=== PATIENT | male | born 1980 | race Caucasian/White ===

== ENCOUNTER 2016-11-11 21:23 | Inpatient (IN) | payer OTHER ==
[2016-11-11 21:33] VITALS: BMI 31.1
[2016-11-11] MEDS ORDERED: DECADRON 4 MG/ML SDV IM STA (22:00)
[2016-11-11] MEDS ORDERED: DUONEB NEB STA (22:00)
[2016-11-11] MEDS ORDERED: TYLENOL PO STA (22:00)
--- NOTE | 2016-11-11 22:09 | ED.PDOC ---
General ED Provider: Dr. SANJEEV ANDERS Chief Complaint: Fever Stated Complaint: Been cughing, congested, fever chills, no sputum. hurting all over, Time Seen by Physician: 22:06 Mode of Arrival: Walk-In Information Source: Patient Primary Care Provider: MEENA STERLING Nursing and Triage Documentation Reviewed and Agree: Yes Respiratory Complaint Exam - Respiratory Complaint/Exam Symptoms Are: Still present Timing: Constant Initial Severity: Mild Current Severity: Mild Location: Chest Character: Reports: Non-productive cough Aggravating: Reports: URI Alleviating: Reports: None Associated Signs and Symptoms: Reports: Dyspnea, Fever, Chills, Nasal congestion , Hoarseness. Denies: Rapid breathing, Chest pain, Pleuritic chest pain, Wheezing, Hemoptysis, Dizziness, Calf pain, Calf swelling, Edema, URI, Sinus discomfort, Vomiting, Sore throat, Weight loss, Decreased oral intake, Increased thirst, Increased appetite, Increased urination History of Healthcare-Acquired Pneumonia: No Related Surgical History: Reports: None Pulmonary Embolism Risk Factors: None, Smoking Cardiac Risk Factors: Reports: None Pseudomonas Risk Factors: Reports: None Tuberculosis Risk Factors: Reports: None Status Asthmaticus Risk Factors: Reports: None Home Oxygen Use: No Recent Stress Test: No Recent Echo/LV Function: No Current Antibiotic Use: No Current Asthma Medication Use: No Respiratory Distress: None Dysphagia Present: No Stridor Present: No JVD Present: No Accessory Muscle Use: No Retractions: Not Present Diminished Breath Sounds: Yes Sinus Tenderness: None Kussmaul Respirations: No Differential Diagnoses: Pneumonia, Bronchitis, Influenza Review of Systems - Review Of Systems Constitutional: Reports: Chills, Fever, Malaise, Weakness Eyes: Reports: No symptoms Ears, Nose, Mouth, Throat: Reports: No symptoms Respiratory: Reports: Cough, Short of air Cardiac: Reports: No symptoms GI: Reports: No symptoms : Reports: No symptoms Musculoskeletal: Reports: No symptoms Skin: Reports: No symptoms Neurological: Reports: No symptoms Endocrine: Reports: No symptoms Hematologic/Lymphatic: Reports: No symptoms All Other Systems: Reviewed and Negative Past Medical History - Past Medical History Previously Healthy: Yes Endocrine: Reports: None Cardiovascular: Reports: None Respiratory: Reports: Asthma Hematological: Reports: None Gastrointestinal: Reports: None Genitourinary: Reports: None Neuro/Psych: Reports: None Musculoskeletal: Reports: None Cancer: Reports: None - Surgical History General Surgical History: Reports: Orthopedic (Left collor bone ) - Family History Family History: Reports: None - Social History Smoking Status: Current every day smoker, Heavy tobacco smoker Smoking Cessation Counseling Time: > 10 min Hx Substance Use: Yes (2 YEAR AGO LORTABS) Alcohol Screening: None - Immunizations Tetanus Shot up to Date: (UNKNOWN) Physical Exam - Physical Exam Appearance: Ill-appearing, Obese Eyes: RUSSELL, EOMI, Conjunctiva clear ENT: Ears normal, Nose normal, Oropharynx normal Respiratory: Crackles, Rhonchi Cardiovascular: RRR, Pulses normal, No rub, No murmur GI/: Soft, Nontender, No masses, Bowel sounds normal, No Organomegaly Musculoskeletal: Normal strength, ROM intact, No edema, No calf tenderness Skin: Warm, Dry, Normal color Neurological: Sensation intact, Motor intact, Reflexes intact, Cranial nerves intact, Alert, Oriented Psychiatric: Affect appropriate, Mood appropriate Interpretation - Radiology Interpretation Radiology Interpretation By: Radiologist Radiology Results: Positive Exam Interpreted: CT Scan Physician Notification - Case Discussed Time of Notification: 23:15 (Dr ramos) Critical Care Note - Critical Care Note Total Time (mins): 30 Course - Course Hematology/Chemistry: 11/11/16 22:16 11/11/16 22:16 Orders, Labs, Meds: Lab Review 11/11/16 11/11/16 11/11/16 22:00 22:16 22:16 WBC 27.52 H RBC 4.39 L Hgb 12.5 L Hct 36.2 L MCV 82.5 MCH 28.5 MCHC 34.5 RDW Coeff of [place] 13.5 Plt Count 281 Immature Gran % (Auto) 0.8 Neut % (Auto) 86.1 Lymph % (Auto) 5.7 L [place] % (Auto) 5.1 Eos % (Auto) 1.7 Baso % (Auto) 0.6 Immature Gran # (Auto) 0.2 Neut # 23.7 H Lymph # 1.6 [place] # 1.4 Eos # 0.5 Baso # 0.2 Sodium 140 Potassium 3.2 L Chloride 105 Carbon Dioxide 24 Anion Gap 14.2 BUN 12 Creatinine 0.78 Estimated GFR (MDRD) 114.00 BUN/Creatinine Ratio 15.38 Glucose 89 Lactic Acid Calcium 9.2 Total Bilirubin 0.44 AST 39 H ALT 20 Alkaline Phosphatase 75 Total Protein 6.9 Albumin 3.4 Globulin 3.5 Albumin/Globulin Ratio 0.97 Procalcitonin Influenza A (Rapid) Negative Influenza B (Rapid) Negative 11/11/16 11/11/16 22:16 22:38 WBC RBC Hgb Hct MCV MCH MCHC RDW Coeff of [place] Plt Count Immature Gran % (Auto) Neut % (Auto) Lymph % (Auto) [place] % (Auto) Eos % (Auto) Baso % (Auto) Immature Gran # (Auto) Neut # Lymph # [place] # Eos # Baso # Sodium Potassium Chloride Carbon Dioxide Anion Gap BUN Creatinine Estimated GFR (MDRD) BUN/Creatinine Ratio Glucose Lactic Acid 11.2 Calcium Total Bilirubin AST ALT Alkaline Phosphatase Total Protein Albumin Globulin Albumin/Globulin Ratio Procalcitonin 0.35 Influenza A (Rapid) Influenza B (Rapid) Orders Category Date Time Status ABG DRAW REQUEST Stat CARDIO 11/11/16 22:29 Ordered NEBULIZER TREATMENT Stat CARDIO 11/11/16 22:01 Ordered ABG Stat LAB 11/11/16 22:23 Received BLOOD CULTURE Stat LAB 11/11/16 22:38 Received CBC W/ AUTO DIFF Stat LAB 11/11/16 22:16 Completed COMPREHENSIVE METABOLIC PANEL Stat LAB 11/11/16 22:16 Completed LACTIC ACID Stat LAB 11/11/16 22:38 Completed PROCALCITONIN Stat LAB 11/11/16 22:16 Completed RAPID FLU A/B Stat LAB 11/11/16 22:00 Completed Acetaminophen [Tylenol] MEDS 11/11/16 22:00 Discontinued 500 mg PO ONCE STA Dexamethasone 4 mg/ml Inj [Decadron 4 mg/ml Sdv] MEDS 11/11/16 22:00 Discontinued 4 mg IM ONCE STA Ipratropium/Albuterol Neb [Duoneb] MEDS 11/11/16 22:00 Discontinued 1 vial NEB ONCE STA Potassium Chloride [K-Dur] MEDS 11/11/16 23:02 Discontinued 40 meq PO ONCE STA CT CHEST W/O CONTRAST Stat RADS 11/11/16 22:00 Completed Medications Discontinued Medications Generic Name Dose Route Start Last Admin Trade Name Freq PRN Reason Stop Dose Admin Acetaminophen 500 mg 11/11/16 22:00 11/11/16 22:14 Tylenol PO 11/11/16 22:01 500 mg ONCE STA Administration Albuterol/Ipratropium 1 vial 11/11/16 22:00 11/11/16 22:24 Duoneb NEB 11/11/16 22:01 1 vial ONCE STA Administration Dexamethasone Sodium Phosphate 4 mg 11/11/16 22:00 11/11/16 22:14 Decadron 4 Mg/Ml Sdv IM 11/11/16 22:01 4 mg ONCE STA Administration Potassium Chloride 40 meq 11/11/16 23:02 11/11/16 23:12 K-Dur PO 11/11/16 23:03 40 meq ONCE STA Administration Vital Signs: Temp Pulse Resp BP Pulse Ox 11/11/16 21:23 101.6 F H 101 H 24 136/81 94 L Departure - Departure Time of Disposition: 23:15 Disposition: ADMITTED INPATIENT Discharge Problem: Pneumonia Qualifiers: Pneumonia type: due to unspecified organism Laterality: bilateral Lung location : unspecified part of lung Qualified Code(s): J18.9 - Pneumonia, unspecified organism Instructions: Community Acquired Pneumonia (ED) Condition: Stable Pt referred to PMD for follow-up: No Allergies/Adverse Reactions: Allergies No Known Allergies Allergy (Verified 11/11/16 21:29) Home Medications: Ambulatory Orders Albuterol Sulfate [Albuterol Sulfate Hfa] 2 inh INH PRN PRN 08/04/13 Ibuprofen [Motrin] 600 mg PO Q6H PRN #30 tablet 08/05/15 Budesonide/Formoterol Fumarate [Symbicort 160-4.5 Mcg Inhaler] 2 puff IH BID 03/29 Soboxone 1 tab PO BID 11/11/16 Transfer Form Completed: Yes Disposition Discussed With: Patient, Family
[2016-11-11 22:24] LABS: BASOPHILS # (AUTO) 0.2 K/uL (0-0.2); BASOPHILS % (AUTO) 0.6 % (0.0-3.0); EOSINOPHILS # (AUTO) 0.5 K/ul (0.0-0.7); EOSINOPHILS % (AUTO) 1.7 % (0.0-7.0); HEMATOCRIT 36.2 % (42.0-52.0); HEMOGLOBIN 12.5 g/dl (14.0-18.0); IMMATURE GRANULOCYTE % (AUTO) 0.8 % (0.0-5.0); LYMPHOCYTES # (AUTO) 1.6 K/uL (0.60-3.4); LYMPHOCYTES % (AUTO) 5.7 (10.0-50.0); MEAN CORPUSCULAR HEMOGLOBIN 28.5 pg (27.0-31.0); MEAN CORPUSCULAR HGB CONC 34.5 (31.8-35.4); MEAN CORPUSCULAR VOLUME 82.5 fl (80.0-94.0); MONOCYTES # (AUTO) 1.4 K/uL (0.4-2.0); MONOCYTES % (AUTO) 5.1 (0-10); NEUTROPHILS # (AUTO) 23.7 K/ul (2.0-6.9); NEUTROPHILS % (AUTO) 86.1; PLATELET COUNT 281 10^3/uL (140-440); RED BLOOD COUNT 4.39 10^6/ul (4.70-6.10); WHITE BLOOD COUNT 27.52 K/ul (4.2-10.2)
--- NOTE | 2016-11-11 22:33 | CT ---
EXAM: CT scan thorax without contrast HISTORY: Fever cough COMPARISON: CT scan thorax 08/05/2015 FINDINGS: Contiguous axial images obtained from the thoracic inlet through hemidiaphragms without co ntrast utilizing 5-mm collimation. Sagittal and coronal reconstructions were imaged and reviewed. Th e thoracic inlet is unremarkable. Redemonstrated are subcentimeter prevascular pretracheal and subca rinal lymph nodes. Hilar structures are not well evaluated without contrast. The heart is normal in size without pericardial effusion. Patchy infiltrates are noted diffusely throughout both lungs. Th ere is no evidence of a pleural effusion. Visualized upper abdominal structures unremarkable.. Bone windows reveals no evidence of lytic or blastic lesions. IMPRESSION: Diffuse patchy infiltrates are noted bilaterally compatible with diffuse pneumonia. No evidence of pleural effusion. Nonspecific subcentimeter mediastinal lymph nodes.
[2016-11-11 22:40] LABS: FLU INTERNAL QC INTERNAL QC VALID; RAPID FLU A NEGATIVE (NEGATIVE); RAPID FLU B NEGATIVE (NEGATIVE)
[2016-11-11 22:44] LABS: ALBUMIN 3.4 g/dL (3.4-5.0); ALBUMIN/GLOBULIN RATIO 0.97; ANION GAP 14.2; BILIRUBIN,TOTAL 0.44 mg/dL (0.00-1.20); BUN/CREATININE RATIO 15.38; CALCIUM 9.2 mg/dL (8.2-10.2); CREATININE 0.78 mg/dL (0.60-1.10); POTASSIUM 3.2 mmol/L (3.5-5.1); TOTAL PROTEIN 6.9 g/dL (6.4-8.2)
[2016-11-11] MEDS ORDERED: K-DUR PO STA (23:02)
[2016-11-11 23:15] LABS: ABG BASE EXCESS -1 (-2.0-2.0); ABG HCO3 23.5 (22.0-26.0); ABG PCO2 37.5 mmHg (35-45); ABG PH 7.406 (7.35-7.45); ABG TCO2 25 (22.0-28.0)
[2016-11-11] MEDS ORDERED: TYLENOL PO PRN (23:16)
[2016-11-11] MEDS ORDERED: ZITHROMAX 500 MG in SODIUM CHLORIDE 250 ML IV SCH (23:30)
[2016-11-11] MEDS ORDERED: ROCEPHIN 1 GM in SODIUM CHLORIDE 50 ML IV SCH (23:30)
[2016-11-12] MEDS: DUONEB NEB SCH ×5 (00:30→23:38)
[2016-11-12] MEDS ORDERED: ROCEPHIN ONE (01:22)
[2016-11-12] MEDS: SODIUM CHLORIDE 1,000 ML IV SCH ×2 (01:54→18:53)
[2016-11-12] MEDS: SOLU-MEDROL 40 MG IVP SCH ×2 (05:22→12:52)
[2016-11-12 05:53] LABS: HEMATOCRIT 35.9 % (42.0-52.0); HEMOGLOBIN 12.2 g/dl (14.0-18.0); MEAN CORPUSCULAR HEMOGLOBIN 28.3 pg (27.0-31.0); MEAN CORPUSCULAR VOLUME 83.3 fl (80.0-94.0); PLATELET COUNT 313 10^3/uL (140-440); RED BLOOD COUNT 4.31 10^6/ul (4.70-6.10); WHITE BLOOD COUNT 32.47 K/ul (4.2-10.2)
[2016-11-12 06:09] LABS: ANISOCYTOSIS NOT PRESENT (NOT PRESENT)
[2016-11-12 06:15] LABS: ALBUMIN 3.2 g/dL (3.4-5.0); ALBUMIN/GLOBULIN RATIO 0.89; ANION GAP 11.1; BILIRUBIN,TOTAL 0.3 mg/dL (0.00-1.20); BUN/CREATININE RATIO 13.41; CALCIUM 9.3 mg/dL (8.2-10.2); CREATININE 0.82 mg/dL (0.60-1.10); POTASSIUM 4.1 mmol/L (3.5-5.1); TOTAL PROTEIN 6.8 g/dL (6.4-8.2)
[2016-11-12 06:16] LABS: TROPONIN I 0.017 ng/ml (0.0000-0.4000)
[2016-11-12 06:17] LABS: CREATINE KINASE MB 2.4 ng/ml (0.0-3.6)
[2016-11-12] MEDS: SYMBICORT 160-4.5 MCG INHALER IH SCH ×2 (08:07→21:28)
[2016-11-12] MEDS: ROCEPHIN 2 GM in SODIUM CHLORIDE 100 ML IV SCH (12:24)
[2016-11-12 13:41] LABS: CREATINE KINASE 479 U/L
[2016-11-12 13:56] LABS: CREATINE KINASE MB 2.8 ng/ml (0.0-3.6)
[2016-11-12] MEDS: LOVENOX SUBCUT SCH (18:45)
[2016-11-12] MEDS: INFUVITE ADULT 10 ML in D5%-1/2NS-KCL 20 MEQ/L IV SOL 1,000 ML IV SCH (18:46)
[2016-11-12] MEDS ORDERED: INFUVITE ADULT IV ONE (18:47)
[2016-11-12] MEDS ORDERED: ROCEPHIN 1 GM in SODIUM CHLORIDE 50 ML IV SCH (21:00)
[2016-11-12] MEDS: ZITHROMAX 500 MG in SODIUM CHLORIDE 250 ML IV SCH (21:28)
[2016-11-13] MEDS: DUONEB NEB SCH ×4 (05:00→23:11)
[2016-11-13 05:10] LABS: BASOPHILS # (AUTO) 0.1 K/uL (0-0.2); BASOPHILS % (AUTO) 0.2 % (0.0-3.0); HEMATOCRIT 33.4 % (42.0-52.0); HEMOGLOBIN 11.5 g/dl (14.0-18.0); IMMATURE GRANULOCYTE % (AUTO) 2.4 % (0.0-5.0); LYMPHOCYTES # (AUTO) 1.8 K/uL (0.60-3.4); LYMPHOCYTES % (AUTO) 6.2 (10.0-50.0); MEAN CORPUSCULAR HEMOGLOBIN 28.6 pg (27.0-31.0); MEAN CORPUSCULAR HGB CONC 34.4 (31.8-35.4); MEAN CORPUSCULAR VOLUME 83.1 fl (80.0-94.0); MONOCYTES # (AUTO) 1.5 K/uL (0.4-2.0); NEUTROPHILS # (AUTO) 24.8 K/ul (2.0-6.9); NEUTROPHILS % (AUTO) 86.2; PLATELET COUNT 324 10^3/uL (140-440); RED BLOOD COUNT 4.02 10^6/ul (4.70-6.10); WHITE BLOOD COUNT 28.74 K/ul (4.2-10.2)
[2016-11-13 05:30] LABS: ALBUMIN 2.8 g/dL (3.4-5.0); ALBUMIN/GLOBULIN RATIO 0.82; ANION GAP 11.7; BILIRUBIN,TOTAL 0.19 mg/dL (0.00-1.20); BUN/CREATININE RATIO 9.58; CALCIUM 9.3 mg/dL (8.2-10.2); CREATININE 0.73 mg/dL (0.60-1.10); POTASSIUM 3.7 mmol/L (3.5-5.1); TOTAL PROTEIN 6.2 g/dL (6.4-8.2)
[2016-11-13] MEDS: LOVENOX SUBCUT SCH (08:26)
[2016-11-13] MEDS: ROCEPHIN 2 GM in SODIUM CHLORIDE 100 ML IV SCH (08:26)
[2016-11-13] MEDS: SYMBICORT 160-4.5 MCG INHALER IH SCH ×2 (08:26→21:33)
--- NOTE | 2016-11-13 09:16 | HP ---
CHIEF COMPLAINT: Fever and fatigue SOURCE OF HISTORY: The patient, reliability good HISTORY OF PRESENT ILLNESS: The patient claimed that he did not feel well the last two prior to the presentation to the emergency room. He was just tired but no sore throat. The patient began experiencing fever and was recorded at 102.9 at home about 9: 00pm. The cough was nonproductive without body aches. He had problems breathing. He denied any nausea, vomiting or diarrhea. Denied abdominal pain. He was seen at the emergency room and the emergency room physician felt that he needed admission because fever, bilateral pneumonia per CT scan and markedly elevate leukocyte count; 27,000. Blood culture and sputum culture was ordered. 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 History of migraine History of surgery to the left clavicle History of Lortab addiction and Suboxone FAMILY HISTORY: Brother had CVA Father history of cardiac problems as well as diabetes Mother had malignancy SOCIAL HISTORY: The patient is single, unemployed with history of PTSD from Deployment in [place] 2002 to 2003. Next of Kin; Ivana Ruth but the person to be notified is Edel Wendy. MEDICATIONS: Albuterol Sulfate HFA two inhalations PRN Motrin 600mg tablet Q 6 hours PRN Symbicort 160/4.5mcg two puffs twice a day Suboxone 8mg/2mg (Buprenorphine) Hydrochloride 8mg/Naloxone 2mg sublingually twice a day ALLERGIES: No known drug allergies. This patient goes to the [facility] in [place] as well as the [facility] clinic in [place]. REVIEW OF SYSTEMS: CONSTITUTIONAL: The patient complains of being fatigue with fever but no chills. Complains of some muscular aches. Denies any sore throat SR RISK MANAGEMENT CONSULTANT: The patient has history of headaches but no significant headaches now. No history of seizure disorder or syncope. The patient had a history of PTSD secondary to deployment in [place] [id number]. VISUAL: Denies any blurred, double vision or loss of vision. AUDITORY: Hearing is good. No tinnitus RESPIRATORY: The patient has cough that is non productive. The patient has some difficulty getting a good breath. This happened on presentation to the emergency room but not now on the floor CARDIOVASCULAR: Denies any chest pain or oppression. GASTROINTESTINAL: No nausea. No vomiting. No diarrhea or abdominal pain GENITOURINARY: No urinary frequency or dysuria. MUSCULOSKELETAL: The patient is complaining of some muscular aching. ENDOCRINE: Negative INTEGUMENT: Denies any rash or pleuritis. HEMATOLOGIC: Denies any easy bruising or prolonged bleeding with any injury PSYCHIATRIC: Affect is normal PHYSICAL EXAMINATION: GENERAL: 36 year old male alert and oriented times four. Not dyspneic or tachypneic at the time of my examination today. Admitted to the hospital because of fever, sensation of shortness of breath and pneumonitis by CT bilateral. VITAL SIGNS: Temperature 101.6, pulse 101, blood pressure 136/81, respiratory rate 24, oxygen saturation 94 at room air. HEAD: Unremarkable. FACE: Symmetrical and equal with no facial weakness and no redness and no remarkably tenderness to palpation in the frontal maxillary sinus areas. EYES: Pupils equal/reactive to light. Conjunctivae not pale. Sclerae not icteric. MOUTH: Unremarkable. THROAT: No inflammation, tumors or exudate. NECK: No masses. No bruit. No tenderness. No rigidity. No adenitis CHEST: Symmetrical and equal with good expansion with no remarkable tenderness. LUNGS: Breath sounds are heard in both sides, slightly diminished and no rales or wheezing. HEART: Audible and regular with good tones. No murmurs. ABDOMEN: Soft with no remarkable tenderness, no mass and no bruit. EXTERNAL GENITALIA: No examined RECTAL: LOWER EXTREMITIES: Symmetrical and equal with no remarkable edema. Pedal pulses not examined UPPER EXTREMITIES: Symmetrical and equal ASSESSMENT: 1. Bilateral pneumonitis 2. History of PTSD 3. History of drug addiction, Lortab now on Suboxone 8mg/2mg 4. Chronic tobacco use, heavy smoker pack of cigarettes per day maybe more 5. Elevated BMI 31.1 PROGNOSIS: Guarded MTDD
[2016-11-13] MEDS ORDERED: INFUVITE ADULT IV ONE ×2 (09:51→23:45)
[2016-11-13] MEDS: INFUVITE ADULT 10 ML in D5%-1/2NS-KCL 20 MEQ/L IV SOL 1,000 ML IV SCH (09:57)
--- NOTE | 2016-11-13 13:11 | PN ---
DATE OF VISIT: 11/12/16 SUBJECTIVE: The patient today is alert, oriented times four and afebrile. He is very cooperative. He looks good and he does not have any cyanosis and no dyspneic or tachypnea. VITAL SIGNS: Temperature 97.2, pulse 69, blood pressure 126/75, respiratory rate 18, oxygen saturation 92 at room air. LUNGS: Breath sounds are slightly diminished but no rales or wheezing that I can appreciate. HEART: Audible and regular with good tones and not tachycardiac. ABDOMEN: Soft and nontender FACE: Maxillary frontal sinuses nontender. LOWER EXTREMITIES: No remarkable tenderness. The patient was advised that his blood count showed an increasing WBC from 27, 000 to 32,000. His chemistries are normal. His sugar however has shot up to 255 probably because of the the Cortizone that was given. I had influenza antibody titers plus repeat procalcitonin. The procalcitonin is increasing from 0.35 to 0.83. I had increased the Rocephin to 2 grams from 1gram daily and the Zithromax was kept in place. I asked the patient not to smoke and he was agreeable. I told him that smoking would not be helpful. If needed a NicoDerm patches that we will give him. Lovenox 40mg Subcutaneously will be instituted. Cortizone should be discontinued since this patient is not having any wheezing. This patient had not had any Cortizone inhalation for the asthma. MTDD
[2016-11-13] MEDS: ZITHROMAX 500 MG in SODIUM CHLORIDE 250 ML IV SCH (21:33)
[2016-11-14] MEDS: INFUVITE ADULT 10 ML in D5%-1/2NS-KCL 20 MEQ/L IV SOL 1,000 ML IV SCH ×3 (00:35→17:29)
[2016-11-14 05:15] LABS: BASOPHILS # (AUTO) 0.1 K/uL (0-0.2); BASOPHILS % (AUTO) 0.6 % (0.0-3.0); EOSINOPHILS # (AUTO) 0.4 K/ul (0.0-0.7); EOSINOPHILS % (AUTO) 2.7 % (0.0-7.0); HEMATOCRIT 33.1 % (42.0-52.0); HEMOGLOBIN 11.3 g/dl (14.0-18.0); IMMATURE GRANULOCYTE % (AUTO) 1.8 % (0.0-5.0); LYMPHOCYTES # (AUTO) 3.7 K/uL (0.60-3.4); LYMPHOCYTES % (AUTO) 24.4 (10.0-50.0); MEAN CORPUSCULAR HEMOGLOBIN 28.5 pg (27.0-31.0); MEAN CORPUSCULAR HGB CONC 34.1 (31.8-35.4); MEAN CORPUSCULAR VOLUME 83.6 fl (80.0-94.0); MONOCYTES % (AUTO) 6.5 (0-10); NEUTROPHILS # (AUTO) 9.7 K/ul (2.0-6.9); PLATELET COUNT 318 10^3/uL (140-440); RED BLOOD COUNT 3.96 10^6/ul (4.70-6.10); WHITE BLOOD COUNT 15.14 K/ul (4.2-10.2)
[2016-11-14] MEDS: DUONEB NEB SCH ×4 (05:24→23:10)
[2016-11-14 05:50] LABS: ALBUMIN 2.7 g/dL (3.4-5.0); ALBUMIN/GLOBULIN RATIO 0.93; ANION GAP 11.2; BILIRUBIN,TOTAL 0.18 mg/dL (0.00-1.20); BUN/CREATININE RATIO 8.1; CALCIUM 8.6 mg/dL (8.2-10.2); CREATININE 0.74 mg/dL (0.60-1.10); POTASSIUM 3.2 mmol/L (3.5-5.1); TOTAL PROTEIN 5.6 g/dL (6.4-8.2)
[2016-11-14] MEDS ORDERED: INFUVITE ADULT IV ONE ×2 (08:07→17:08)
[2016-11-14] MEDS: LOVENOX SUBCUT SCH (08:16)
[2016-11-14] MEDS: ROCEPHIN 2 GM in SODIUM CHLORIDE 100 ML IV SCH (09:36)
[2016-11-14] MEDS: SYMBICORT 160-4.5 MCG INHALER IH SCH ×2 (09:36→21:03)
[2016-11-14] MEDS ORDERED: MOTRIN PO PRN (12:36)
[2016-11-15] MEDS ORDERED: INFUVITE ADULT IV ONE (04:14)
[2016-11-15] MEDS: INFUVITE ADULT 10 ML in D5%-1/2NS-KCL 20 MEQ/L IV SOL 1,000 ML IV SCH (04:30)
[2016-11-15] MEDS: DUONEB NEB SCH ×3 (04:50→17:04)
[2016-11-15 06:04] LABS: BASOPHILS # (AUTO) 0.2 K/uL (0-0.2); BASOPHILS % (AUTO) 1.4 % (0.0-3.0); EOSINOPHILS # (AUTO) 1.1 K/ul (0.0-0.7); EOSINOPHILS % (AUTO) 7.5 % (0.0-7.0); HEMATOCRIT 36.9 % (42.0-52.0); HEMOGLOBIN 12.4 g/dl (14.0-18.0); IMMATURE GRANULOCYTE % (AUTO) 3.7 % (0.0-5.0); LYMPHOCYTES # (AUTO) 3.6 K/uL (0.60-3.4); LYMPHOCYTES % (AUTO) 23.9 (10.0-50.0); MEAN CORPUSCULAR HEMOGLOBIN 28.4 pg (27.0-31.0); MEAN CORPUSCULAR HGB CONC 33.6 (31.8-35.4); MEAN CORPUSCULAR VOLUME 84.4 fl (80.0-94.0); MONOCYTES # (AUTO) 1.1 K/uL (0.4-2.0); MONOCYTES % (AUTO) 7.5 (0-10); NEUTROPHILS # (AUTO) 8.4 K/ul (2.0-6.9); PLATELET COUNT 354 10^3/uL (140-440); RED BLOOD COUNT 4.37 10^6/ul (4.70-6.10); WHITE BLOOD COUNT 15.01 K/ul (4.2-10.2)
[2016-11-15] MEDS: SYMBICORT 160-4.5 MCG INHALER IH SCH (08:21)
[2016-11-15] MEDS: ROCEPHIN 2 GM in SODIUM CHLORIDE 100 ML IV SCH (08:21)
[2016-11-15] MEDS: LOVENOX SUBCUT SCH (08:21)
--- NOTE | 2016-11-15 10:44 | PN ---
DATE OF SERVICE: 11/13/16 The patient today at noon is alert and without any respiratory distress and no cyanosis. His appetite is good and he claimed to be feeling much better. His WBC is down to 28,000 from 31 plus. I advised the patient that I had reviewed his chest CT with the radiologist. He had previous findings, which he admitted to having had previous pneumonias. The findings on the chest has worsened. I did advise him that he needs to stop smoking. The radiologist felt that the pneumonia is probably an atypical pneumonia, mycoplasma or chlamydia. Titers for those were requested. It is also possible that he could have a viral pneumonia. Titers for those are still pending also. Findings are the same as yesterday. VITAL SIGNS: At 10 a.m. showed a temperature of 96.9, pulse of 64, blood pressure 117/62, respiratory rate 18, oxygen saturation 93 at room air. PLAN: 1. This patient is continued on medications consisting of Rocephin 2 grams daily and Zithromax 500 mg daily. 2. The patient will probably be given four days of Zithromax, instead of 3 days. 3. The patient was advised to take deep breaths about three times in a row and exhale it slowly. MTDD
[2016-11-15 15:15] VITALS: BP 132/80; TEMP 97.8
[2016-11-15] MEDS ORDERED: LEVAQUIN PO STA (15:38)
[2016-11-15 19:10] LABS: CHLAMYDIA PNEUMONIAE IGM <1:10 (Neg:<1:10)
[2016-11-16 06:43] LABS: ABG BASE EXCESS 4 (-2.0-2.0); ABG PCO2 46.8 mmHg (35-45); ABG PH 7.399 (7.35-7.45); ABG TCO2 30 (22.0-28.0)
--- NOTE | 2016-11-21 15:15 | HP ---
CHIEF COMPLAINT: Fever and fatigue. SOURCE OF HISTORY: The patient, reliability good HISTORY OF PRESENT ILLNESS: The patient claimed that she did not feel well in the last two day prior to presentation to the emergency room. She was just tired but no sore throat. The patient began experiencing fever and was recorded at 102.9 at home about 9pm. The cough was nonproductive with body aches. He has problems breathing. He denied any nausea, vomiting or diarrhea. Also denies any abdominal pain. He was seen at the emergency room at the emergency room physician felt that he needed admission because of fever, bilateral pneumonia per CT scan and markedly elevated leukocyte count 27,000. Blood culture and sputum culture was ordered. PAST PERSONAL HISTORY: The patient had history of asthma Depression Anxiety PTSD secondary to Deployment in [place] 2002 and 2003 History of migraine History of surgery to the left cervic FAMILY HISTORY: SOCIAL HISTORY: MEDICATIONS: ALLERGIES: REVIEW OF SYSTEMS: CONSTITUTIONAL: SUPERVISOR ELEMENTARY EDUCATION: VISUAL: AUDITORY: RESPIRATORY: CARDIOVASCULAR: GASTROINTESTINAL: GENITOURINARY: MUSCULOSKELETAL: ENDOCRINE: INTEGUMENT: HEMATOLOGIC: PSYCHIATRIC: PHYSICAL EXAMINATION: GENERAL: VITAL SIGNS: HEAD: EYES: Pupils equal/reactive to light. Conjunctivae not pale. Sclerae not icteric. MOUTH: THROAT: No inflammation, tumors or exudate. NECK: No masses. No bruit. No tenderness. No rigidity. CHEST: LUNGS: HEART: Audible and regular with good tones. No murmurs. ABDOMEN: EXTERNAL GENITALIA: RECTAL: LOWER EXTREMITIES: UPPER EXTREMITIES: ASSESSMENT: 1. PLAN: 1. MTDD
--- NOTE | 2017-01-05 09:47 | PN ---
DATE OF VISIT: 11/14/16 SUBJECTIVE: The patient at 6 o'clock this afternoon is alert, ambulatory with movement of all extremities. He denies any shortness of breath and the cough is still nonproductive. Lungs still have diminished breath sounds but I certainly do not hear any rales or wheezing. Heart is audible with good tones and not tachycardic. OBJECTIVE: V/S: Temperature 97.7, pulse 63, BP 136/83, respiratory rate 16, oxygen saturation 97 on room air. He ate 100% of his dinner. WBC down to 20,740, neutrophils up slightly 24.8, electrolytes normal. Blood sugar 219. The patient is getting Dextrose 5% in 1/2 Saline. Total protein is low 6.2, albumin low at 2.8, Mycoplasma IgG 214, IgM less than 770, C. Pneumoniae IgG 1:128, IgM less than 1:10. Condition has improved. The general appearance of patient is good and does not appear sickly. [facility]
--- NOTE | 2017-01-07 13:44 | DS ---
PATIENT IDENTIFICATION: 36 year old male admitted to the hospital by the emergency room with a diagnosis of bilateral pneumonitis. The patient about two days prior to presentation to the emergency room did not feel well and felt tired. He did not have any fever then until 9:00 in the evening on the day of presentation. HOSPITAL COURSE: The patient experienced a temperature of 102.9. The cough was nonproductive and the patient denied any generalized body aches. He did experiencing some shortness of breath with exertion but no nausea or vomiting or diarrhea. He also did not have any abdominal pain or any urinary symptoms such as dysuria. This patient had history of asthma, depression, anxiety, PTSD from war deployment in 2002 and 2003 in [place], history of migraine, surgical to left clavicle fracture, addiction to Lortab and now on Suboxone. The patient's breath sounds were diminished but I could not hear any rales at all. Chest CT does indicate scattered densities indicating bilateral pneumonitis. I had review the chest CT and the previous x-ray of this patient and indeed the patient had some chest findings previously but the findings has progressed from the previous. His temperature at the emergency room was 101.6, pulse 101, blood pressure 136/81, oxygen saturation 94 he is 5'11 and 223 pounds. Blood culture and sputum specimens were obtained and the patient was then given Ceftriaxone 1 gram intervenously and Azithromycin 500mg intervenously daily. Ceftriaxone was increased to 2grams daily. The patient was given Lovenox 40mg SUBCUT as prophylaxis and Methylprednisolone 40mg SUBCUT IV Q 8 hours. He was also given Symbicort two puffs twice a day, DUO NEB nebulizer. Initial IV of 5% normal saline was changed to Dextrose 5% and 1/2 saline plus 20 KCL plus Mvi. These were given at 83cc per hour. He had analgesic Tylenol. Antipsoriatic was discontinued. The patient had normal temperature since admission to the floor. His appetite had improved and had been consuming 100% of dinner since the day after admission. Series showed severe leukocytosis rising 32,470 on the second day and had returned to 15,010 on discharge 11/15/16. The neutrophil began at 23.7 and down to 8.4 on day of discharge. The Procalcitonin 0.35 on admission and did rise to 0.83 on the second day and down to 0.14 on discharge 11/15/16. CK-MB and troponin were normal. Total bilirubin normal and AST and ALT normal except for one instance on admission at 39. Radiologist felt that this patient probably has an typical pneumonia process that maybe Chlamydia. This patient had Chlamydia antibody titer requested IgG and IgM. The IgG is intermediate and IgM is negative. Influenza A 1:32 and B 1:8. Mycoplasma pneumonia IgG 214 and IgM normal less than 770. Atrial blood gasses in the emergency room showed O2 saturation of 93, pH 7.406, pCO2 37.5, pO2 66, bicarb 23.5, FiO2 21. A repeat atrial blood gasses on discharged showed oxygen saturation at 95, pH 7.399, pCO2 46.8, pO2 77, bicarb 29, total CO2 30, FiO2 21. This patient at discharge was alert, ambulatory, feeling well. VITAL SIGNS: Temperature 97.8, pulse 73, blood pressure 132/80, respiratory rate 20, oxygen saturation room air 97. LUNGS:Breath sounds are diminished but I heard no rales. HEART: normal sinus rhythm FINAL DIAGNOSES: 1. Bilateral pneumonitis community acquire maybe atypical 2. Chronic tobacco use and abuse persistent 3. Hypoxemia secondary to #1 4. History of PTSD 5. History of Asthma PLAN: This patient is prescribed Levaquin 750mg daily. Resume all medications: Albuterol, Symbicort, Buprenorphine, Motrin if needed otherwise avoid the medication. The patient was advised to stop smoking completely and should see his primary physician or provider this coming Friday or Friday of the coming week. He goes to the [facility] either in [place] or [place]. He was further instructed to return to the emergency room if he has more problem or has recurrence of the problem. This patient again was repeatedly advised to stop smoking. PROGNOSIS: Guarded MTDD
== END 2016-11-15 17:45 | disposition home or self-care (01) | DRG 195 ==
LOC: ED 21:23 → MEDSURG A 23:40
PROVIDERS: ADMIT General Practice; ATTEND General Practice
DX: J18.9 Pneumonia, unspecified organism (principal); R50.9 Fever, unspecified; J45.909 Unspecified asthma, uncomplicated; R06.02 Shortness of breath; F43.12 Post-traumatic stress disorder, chronic; R09.02 Hypoxemia; F17.200 Nicotine dependence, unspecified, uncomplicated; Z79.899 Other long term (current) drug therapy
CPT/HCPCS: 36415; 80053; 82550; 82553; 82803; 83036; 83605; 84145; 84484; 85007; 85025; 86631; 86632; 86710; 86738; 87040; 87070; 87804; 93005; 93010; 94640; 96372; 99285

== ENCOUNTER 2018-02-07 21:18 | Emergency (ER) ==
[2018-02-07 21:28] VITALS: BMI 35.9
[2018-02-07] MEDS ORDERED: XOPENEX 1.25 MG NEB STA (21:29)
--- NOTE | 2018-02-07 21:46 | CT ---
EXAM: CT chest without contrast HISTORY: Fever/cough TECHNIQUE: Multi-slice transaxial helical with coronal and sagittal reformed images CONTRAST: None COMPARISON: CT chest from 11/11/2016. FINDINGS: The aorta has normal caliber. The heart size is normal. No pericardial or pleural effusio ns are appreciated. No suspicious lymphadenopathy detected. Sub centimeter mediastinal lymph nodes are noted. There are diffuse ground-glass opacities throughout the lungs. The solid organs are normal their visualized portions of the upper abdomen. The bones are free of suspicious osteolytic or osteoblastic lesions. IMPRESSION: Multifocal pneumonitis.
[2018-02-07] MEDS ORDERED: LEVAQUIN 750 MG in PREMIX 150 ML D5W 1 BAG IV STA (22:14)
[2018-02-07] MEDS ORDERED: LEVAQUIN 150 ML IV ONE (22:25)
--- NOTE | 2018-02-07 23:01 | ED.PDOC ---
General ED Provider: Dr. INOCENTE DYER-ER Chief Complaint: Fever Stated Complaint: i have fever and cough Time Seen by Physician: 21:20 Mode of Arrival: Walk-In Information Source: Patient Exam Limitations: No limitations Primary Care Provider: MEENA [place] Nursing and Triage Documentation Reviewed and Agree: Yes Does patient meet sepsis criteria?: No If yes, has appropriate treatment been initiated?: No System Inflammatory Response Syndrome: Not Applicable Sepsis Protocol: For patient's 13 years and over: Temp is 96.8 and below OR 101 and greater Pulse >90 BPM Resp >20/minute Acutely Altered Mental Status Are patient's symptoms suggestive of a new infection, such as: -Pneumonia -Skin, Soft Tissue -Endocarditis -UTI -Bone, Joint Infection -Implantable Device -Acute Abdominal Infection -Wound Infection -Meningitis -Blood Stream Catheter Infection -Unknown Respiratory Complaint Exam - Respiratory Complaint/Exam Onset/Duration: 2 days Symptoms Are: Still present Initial Severity: Mild Current Severity: Moderate Character: Reports: Productive cough Aggravating: Reports: URI Associated Signs and Symptoms: Reports: Dyspnea, Fever, Chills, URI. Denies: Rapid breathing Pseudomonas Risk Factors: Reports: None Tuberculosis Risk Factors: Reports: None Dysphagia Present: No Stridor Present: No JVD Present: No Accessory Muscle Use: No Retractions: Not Present, Diaphragmatic Sinus Tenderness: None Grunting Respirations: No Kussmaul Respirations: No Differential Diagnoses: Pneumonia Review of Systems - Review Of Systems Constitutional: Reports: Chills, Fever, Weakness Eyes: Reports: No symptoms Ears, Nose, Mouth, Throat: Reports: No symptoms Respiratory: Reports: Cough, Short of air Cardiac: Reports: No symptoms GI: Reports: No symptoms : Reports: No symptoms Musculoskeletal: Reports: No symptoms Skin: Reports: No symptoms Neurological: Reports: No symptoms Endocrine: Reports: No symptoms Hematologic/Lymphatic: Reports: No symptoms All Other Systems: Reviewed and Negative Past Medical History - Past Medical History Previously Healthy: Yes Endocrine: Reports: None Cardiovascular: Reports: None Respiratory: Reports: Asthma Hematological: Reports: None Gastrointestinal: Reports: None Genitourinary: Reports: None Neuro/Psych: Reports: None Musculoskeletal: Reports: None Cancer: Reports: None - Surgical History General Surgical History: Reports: Orthopedic (Left collor bone ) - Family History Family History: Reports: None - Social History Smoking Status: Current every day smoker, Heavy tobacco smoker Hx Substance Use: Yes (TAKES SUBOXONE) Alcohol Screening: None - Immunizations Tetanus Shot up to Date: (UNKNOWN) Physical Exam - Physical Exam Appearance: Ill-appearing Eyes: RUSSELL, EOMI, Conjunctiva clear ENT: Ears normal, Nose normal, Oropharynx normal Neck: Supple Respiratory: Crackles, Rhonchi, Wheezes Cardiovascular: RRR, Pulses normal, No rub, No murmur GI/: Soft Musculoskeletal: Normal strength Skin: Warm, Dry, Normal color Neurological: Sensation intact, Motor intact, Reflexes intact, Cranial nerves intact, Alert, Oriented Psychiatric: Affect appropriate, Mood appropriate Interpretation - Radiology Interpretation Radiology Interpretation By: Radiologist Radiology Results: Positive Exam Interpreted: CT Scan - EKG Interpretation Time of EKG #1: 23:10 Rate: Normal Rhythm: Sinus Ectopy: None Gifford: NL ST Segment: Normal Interpretation: nsr Physician Notification - Case Discussed Physician Notified: dr gabriela luque Time of Notification: 00:30 Critical Care Note - Critical Care Note Total Time (mins): 0 Course - Course Hematology/Chemistry: 02/07/18 22:05 02/07/18 22:05 Orders, Labs, Meds: Lab Review 02/07/18 02/07/18 02/07/18 21:28 21:52 22:00 WBC RBC Hgb Hct MCV MCH MCHC RDW Coeff of Felton Plt Count Immature Gran % (Auto) Neut % (Auto) Lymph % (Auto) Emery % (Auto) Eos % (Auto) Baso % (Auto) Immature Gran # (Auto) Neut # (Auto) Lymph # (Auto) Emery # (Auto) Eos # (Auto) Baso # (Auto) Puncture Site Lr O2 Saturation 92.0 L ABG pH 7.388 ABG pCO2 40.9 ABG pO2 63.0 L ABG HCO3 24.6 ABG Total CO2 26 ABG Base Excess 0 Aydin Test + FiO2 % 21.0 Sodium Potassium Chloride Carbon Dioxide Anion Gap BUN Creatinine Estimated GFR (MDRD) BUN/Creatinine Ratio Glucose Lactic Acid Calcium Total Bilirubin AST ALT Alkaline Phosphatase Total Protein Albumin Globulin Albumin/Globulin Ratio Procalcitonin Urine Color Yellow Urine Clarity Clear Urine pH 6.5 Ur Specific [place] 1.025 Urine Protein 1+ Urine Glucose (UA) Negative Urine Ketones Negative Urine Blood 1+ Urine Nitrite Negative Urine Bilirubin Negative Urine Urobilinogen 0.2 Ur Leukocyte Esterase Negative Urine Microscopic RBC 5-10 Ur Squamous Epith Cells Not present Influ A Molecular Assay Negative by naat Influ B Molecular Assay Negative by naat 02/07/18 02/07/18 02/07/18 22:05 22:05 22:05 WBC 23.20 H RBC 4.95 Hgb 14.1 Hct 41.3 L MCV 83.4 MCH 28.5 MCHC 34.1 RDW Coeff of [place] 13.6 Plt Count 281 Immature Gran % (Auto) 0.6 Neut % (Auto) 81.5 Lymph % (Auto) 9.7 L Emery % (Auto) 6.2 Eos % (Auto) 1.4 Baso % (Auto) 0.6 Immature Gran # (Auto) 0.1 Neut # (Auto) 18.9 H Lymph # (Auto) 2.2 Emery # (Auto) 1.4 Eos # (Auto) 0.3 Baso # (Auto) 0.1 Puncture Site O2 Saturation ABG pH ABG pCO2 ABG pO2 ABG HCO3 ABG Total CO2 ABG Base Excess Aydin Test FiO2 % Sodium 136.7 Potassium 3.88 Chloride 99.8 Carbon Dioxide 28.4 Anion Gap 12.38 BUN 14.5 Creatinine 0.99 Estimated GFR (MDRD) 86.00 BUN/Creatinine Ratio 14.64 Glucose 106.3 H Lactic Acid 0.88 Calcium 9.51 Total Bilirubin 0.29 AST 33.6 ALT 26.7 Alkaline Phosphatase 76.9 Total Protein 8.11 Albumin 4.66 Globulin 3.45 Albumin/Globulin Ratio 1.35 Procalcitonin Urine Color Urine Clarity Urine pH Ur Specific [place] Urine Protein Urine Glucose (UA) Urine Ketones Urine Blood Urine Nitrite Urine Bilirubin Urine Urobilinogen Ur Leukocyte Esterase Urine Microscopic RBC Ur Squamous Epith Cells Influ A Molecular Assay Influ B Molecular Assay 02/07/18 22:05 WBC RBC Hgb Hct MCV MCH MCHC RDW Coeff of [place] Plt Count Immature Gran % (Auto) Neut % (Auto) Lymph % (Auto) Emery % (Auto) Eos % (Auto) Baso % (Auto) Immature Gran # (Auto) Neut # (Auto) Lymph # (Auto) Emery # (Auto) Eos # (Auto) Baso # (Auto) Puncture Site O2 Saturation ABG pH ABG pCO2 ABG pO2 ABG HCO3 ABG Total CO2 ABG Base Excess Aydin Test FiO2 % Sodium Potassium Chloride Carbon Dioxide Anion Gap BUN Creatinine Estimated GFR (MDRD) BUN/Creatinine Ratio Glucose Lactic Acid Calcium Total Bilirubin AST ALT Alkaline Phosphatase Total Protein Albumin Globulin Albumin/Globulin Ratio Procalcitonin 0.08 Urine Color Urine Clarity Urine pH Ur Specific [place] Urine Protein Urine Glucose (UA) Urine Ketones Urine Blood Urine Nitrite Urine Bilirubin Urine Urobilinogen Ur Leukocyte Esterase Urine Microscopic RBC Ur Squamous Epith Cells Influ A Molecular Assay Influ B Molecular Assay Orders Category Date Time Status ABG DRAW REQUEST Stat CARDIO 02/07/18 21:28 Completed EKG-(ED ONLY) Stat CARDIO 02/07/18 23:01 Completed NEBULIZER TREATMENT Stat CARDIO 02/07/18 21:29 Completed TRANSFER TO OUTSIDE FACILITY .TO [facility] 02/08/18 00:19 Active CENTER ([place], [place]) WRITE TRANSFER/SBAR NOTE ONCE CARE 02/08/18 00:19 Active DISCHARGE ASSESSMENT ONCE DISCHARGE 02/08/18 00:19 Active WRITE DISCHARGE NOTE ONCE DISCHARGE 02/08/18 00:19 Active IV [ED IV/MEDIPORT/POWERPORT] .ONCE EMERGENCY 02/07/18 22:14 Active OXYGEN [ED APPLY O2] .ONCE EMERGENCY 02/07/18 22:21 Active ARTERIAL BLOOD GAS [ABG] Stat LAB 02/07/18 21:28 Completed BLOOD CULTURE (ED ONLY) Stat LAB 02/07/18 22:05 Received CBC W/ AUTO DIFF Stat LAB 02/07/18 22:05 Completed COMPREHENSIVE METABOLIC PANEL Stat LAB 02/07/18 22:05 Completed FLU A/B MOLECULAR Stat LAB 02/07/18 21:52 Completed LACTIC ACID Stat LAB 02/07/18 22:05 Completed MOLECULAR GROUP A STREP Stat LAB 02/07/18 22:00 Completed PROCALCITONIN Stat LAB 02/07/18 22:05 Completed UA [URINALYSIS C & S IF INDICATED] Stat LAB 02/07/18 22:00 Completed 0.9 % Sodium Chloride [Saline Flush] MEDS 02/07/18 22:14 Ordered 1 syr IVF PRN PRN Levalbuterol HCl [Xopenex 1.25 mg] MEDS 02/07/18 21:29 Discontinued 1 vial NEB ONCE STA Levofloxacin/D5w [Levaquin] 150 ml MEDS 02/07/18 22:25 Discontinued IV .STK-MED Levofloxacin/D5w [Levaquin] 750 mg MEDS 02/07/18 22:14 Discontinued Premix 150 ml D5w [address] CHEST W/O CONTRAST Stat RADS 02/07/18 21:21 Completed Medications Generic Name Dose Route Start Last Admin Trade Name Freq PRN Reason Stop Dose Admin Sodium Chloride 1 syr 02/07/18 22:14 Saline Flush IVF PRN PRN To flush IV Discontinued Medications Generic Name Dose Route Start Last Admin Trade Name Freq PRN Reason Stop Dose Admin Levofloxacin/Dextrose 750 mg/ 150 mls @ 100 mls/hr 02/07/18 22:14 02/07/18 22 :39 Dextrose IV 02/07/18 23:43 100 mls/hr ONCE STA Administration Levalbuterol HCl 1 vial 02/07/18 21:29 02/07/18 22:23 Xopenex 1.25 Mg NEB 02/07/18 21:30 1 vial ONCE STA Administration Vital Signs: Temp Pulse Resp BP Pulse Ox 02/08/18 01:25 99.6 F 85 16 122/67 92 L 02/07/18 21:18 101.5 F H 96 H 20 164/93 H 93 L Departure - Departure Time of Disposition: 23:02 Disposition: TSF SHORT-TRM HOSP Discharge Problem: Acute respiratory failure Qualifiers: Respiratory failure complication: hypoxia Qualified Code(s): J96.01 - Acute respiratory failure with hypoxia Pneumonia Qualifiers: Pneumonia type: due to unspecified organism Laterality: bilateral Lung location : unspecified part of lung Qualified Code(s): J18.9 - Pneumonia, unspecified organism Asthma Qualifiers: Asthma severity: mild Asthma persistence: unspecified Asthma complication type : uncomplicated Qualified Code(s): J45.909 - Unspecified asthma, uncomplicated Instructions: Pneumonitis (ED) Condition: Fair Pt referred to PMD for follow-up: Yes IPMP verified?: No Allergies/Adverse Reactions: Allergies No Known Allergies Allergy (Verified 02/07/18 21:48) Home Medications: Ambulatory Orders Albuterol Sulfate [Albuterol Sulfate Hfa] 2 inh INH PRN PRN 08/04/13 Ibuprofen [Motrin] 600 mg PO Q6H PRN #30 tablet 08/05/15 Budesonide/Formoterol Fumarate [Symbicort 160-4.5 Mcg Inhaler] 2 puff IH BID 03/29 Buprenorphine HCl/Naloxone HCl [Suboxone 8 mg-2 mg Sl Film] 8 mg SL BID Transfer Form Completed: Yes Disposition Discussed With: Patient, Family
[2018-02-08 01:25] VITALS: BP 122/67; TEMP 99.6
== END 2018-02-08 02:14 | disposition short-term general hospital (02) ==
LOC: ED 21:18
DX: R50.9 Fever, unspecified (principal); R05 Cough; J06.9 Acute upper respiratory infection, unspecified; R06.00 Dyspnea, unspecified; R53.1 Weakness; R06.02 Shortness of breath; J96.01 Acute respiratory failure with hypoxia; J18.9 Pneumonia, unspecified organism; J45.909 Unspecified asthma, uncomplicated; Z72.0 Tobacco use
CPT/HCPCS: 36415; 80053; 81001; 82803; 83605; 84145; 85025; 87040; 87502; 87651; 93005; 93010; 94640; 96365; 99285

== ENCOUNTER 2018-04-15 23:54 | Emergency (ER) ==
[2018-04-16 00:01] VITALS: BP 130/77; TEMP 98.8; BMI 37.3
[2018-04-16] MEDS ORDERED: CLEOCIN PO STA (00:04)
--- NOTE | 2018-04-16 00:07 | ED.PDOC ---
General ED Provider: Dr. INOCENTE DYER-ER Chief Complaint: Tooth Problem Stated Complaint: my tooth is swollen Time Seen by Physician: 00:05 Mode of Arrival: Walk-In Information Source: Patient Exam Limitations: No limitations Primary Care Provider: MEENA [place] Nursing and Triage Documentation Reviewed and Agree: Yes Does patient meet sepsis criteria?: No System Inflammatory Response Syndrome: Not Applicable Sepsis Protocol: For patient's 13 years and over: Temp is 96.8 and below OR 101 and greater Pulse >90 BPM Resp >20/minute Acutely Altered Mental Status Are patient's symptoms suggestive of a new infection, such as: -Pneumonia -Skin, Soft Tissue -Endocarditis -UTI -Bone, Joint Infection -Implantable Device -Acute Abdominal Infection -Wound Infection -Meningitis -Blood Stream Catheter Infection -Unknown EENT Complaint Exam - Dental/Oral Complaint/Exam Mechanism of Injury: No known trauma Onset/Duration: 24 hrs Symptoms Are: Still present Timing: Constant Initial Severity: Mild Current Severity: Mild Location: right upper premolar Character: Reports: Dull, Aching, Throbbing Aggravating: Reports: None Alleviating: Reports: None Associated Signs and Symptoms: Reports: Swelling Dental/Oral Surgical History: Reports: None Tooth Findings: Present: Percussion tenderness, Gross caries Cervical Lymphadenopathy Present: No Facial Swelling Present: Yes Bleeding Present: No Oropharynx Findings: Absent: Clots, Active bleeding Septal Hematoma: No Foreign Body Present: No Dysphagia Present: No Drooling Present: No Asymmetrical Tonsillar Swelling Present: No Uvula Midline: Yes Abril-tonsillar Fluctuence: No Trismus Present: No Palatal Petechiae Present: No Scarlatinaform Rash Present: No Differential Diagnoses: Dental Abcess, Dental Caries Review of Systems - Review Of Systems Constitutional: Reports: No symptoms Eyes: Reports: No symptoms Ears, Nose, Mouth, Throat: Reports: Mouth pain, Mouth swelling Respiratory: Reports: No symptoms Cardiac: Reports: No symptoms GI: Reports: No symptoms : Reports: No symptoms Musculoskeletal: Reports: No symptoms Skin: Reports: No symptoms Neurological: Reports: No symptoms Endocrine: Reports: No symptoms Hematologic/Lymphatic: Reports: No symptoms All Other Systems: Reviewed and Negative Past Medical History - Past Medical History Previously Healthy: Yes Endocrine: Reports: None Cardiovascular: Reports: None Respiratory: Reports: Asthma Hematological: Reports: None Gastrointestinal: Reports: None Genitourinary: Reports: None Neuro/Psych: Reports: None Musculoskeletal: Reports: None Cancer: Reports: None - Surgical History General Surgical History: Reports: Orthopedic (Left collor bone ) - Family History Family History: Reports: None - Social History Smoking Status: Current every day smoker, Heavy tobacco smoker Hx Substance Use: Yes (LORTABS IN THE PAST, TAKING SUBOXONE) Alcohol Screening: None - Immunizations Tetanus Shot up to Date: No Physical Exam - Physical Exam Appearance: Well-appearing, No pain distress, Well-nourished Eyes: RUSSELL, EOMI, Conjunctiva clear ENT: Ears normal, Nose normal, Oropharynx normal Neck: Supple Respiratory: Airway patent, Breath sounds clear, Breath sounds equal, Respirations nonlabored Cardiovascular: RRR, Pulses normal, No rub, No murmur GI/: Soft, Nontender, No masses, Bowel sounds normal, No Organomegaly Musculoskeletal: Normal strength, ROM intact, No edema, No calf tenderness Skin: Warm, Dry, Normal color Neurological: Sensation intact, Motor intact, Reflexes intact, Cranial nerves intact, Alert, Oriented Psychiatric: Affect appropriate Critical Care Note - Critical Care Note Total Time (mins): 0 Course - Course Orders, Labs, Meds: Orders Category Date Time Status Clindamycin HCl [Cleocin] MEDS 04/16/18 00:04 Stat 300 mg PO ONCE STA Vital Signs: Temp Pulse Resp BP Pulse Ox 04/15/18 23:54 98.8 F 70 18 130/77 95 Departure - Departure Time of Disposition: 00:07 Disposition: HOME SELF-CARE Discharge Problem: Dental abscess Instructions: Dental Abscess (ED) Condition: Good Pt referred to PMD for follow-up: Yes IPMP verified?: No Additional Instructions: clindamycin 300mg qid x 7 days---see dentist maria elena Allergies/Adverse Reactions: Allergies No Known Allergies Allergy (Verified 04/16/18 00:01) Home Medications: Ambulatory Orders Albuterol Sulfate [Albuterol Sulfate Hfa] 2 inh INH PRN PRN 08/04/13 Ibuprofen [Motrin] 600 mg PO Q6H PRN #30 tablet 08/05/15 Budesonide/Formoterol Fumarate [Symbicort 160-4.5 Mcg Inhaler] 2 puff IH BID 03/29 Buprenorphine HCl/Naloxone HCl [Suboxone 8 mg-2 mg Sl Film] 8 mg SL BID Disposition Discussed With: Patient
== END 2018-04-16 00:15 | disposition home or self-care (01) ==
LOC: ED 23:54
DX: K08.89 Other specified disorders of teeth and supporting structures (principal); K04.7 Periapical abscess without sinus; K02.7 Dental root caries; F17.210 Nicotine dependence, cigarettes, uncomplicated
CPT/HCPCS: 99282

== ENCOUNTER 2018-04-17 20:00 | Emergency (ER) | payer OTHER ==
[2018-04-17 20:03] VITALS: BP 144/90; TEMP 99.7; BMI 36.2
--- NOTE | 2018-04-17 20:16 | ED.PDOC ---
General ED Provider: Dr. SUKHJINDER MATTHEWS Chief Complaint: Tooth Problem Stated Complaint: Extensive caries of many teeth.Presently an abscess sourcing froim r upper anterior incisors,Visible right facial swqellin g,discoloration and tenderness. Srarted on Clinda 48 hours past. Time Seen by Physician: 20:00 Mode of Arrival: Walk-In Information Source: Patient Exam Limitations: No limitations Primary Care Provider: [facility] Nursing and Triage Documentation Reviewed and Agree: Yes Does patient meet sepsis criteria?: No System Inflammatory Response Syndrome: Not Applicable Sepsis Protocol: For patient's 13 years and over: Temp is 96.8 and below OR 101 and greater Pulse >90 BPM Resp >20/minute Acutely Altered Mental Status Are patient's symptoms suggestive of a new infection, such as: -Pneumonia -Skin, Soft Tissue -Endocarditis -UTI -Bone, Joint Infection -Implantable Device -Acute Abdominal Infection -Wound Infection -Meningitis -Blood Stream Catheter Infection -Unknown EENT Complaint Exam - Dental/Oral Complaint/Exam Onset/Duration: three days Symptoms Are: Still present Timing: Constant Initial Severity: Mild Current Severity: Moderate Location: right upper dental bank fron and right face Character: Reports: Aching Aggravating: Reports: Chewing Alleviating: Reports: None Associated Signs and Symptoms: Reports: Swelling Related History: Reports: Similar episode, Previous tooth problem Tooth Findings: Present: Percussion tenderness, Gross decay, Gross caries, Cellulitis Cervical Lymphadenopathy Present: No Facial Swelling Present: Yes Bleeding Present: No Septal Hematoma: No Foreign Body Present: No Dysphagia Present: No Drooling Present: No Asymmetrical Tonsillar Swelling Present: No Uvula Midline: Yes Abril-tonsillar Fluctuence: No Trismus Present: No Palatal Petechiae Present: No Scarlatinaform Rash Present: No Differential Diagnoses: Dental Abcess, Dental Caries, Gingivitis, Periodontic Disease, Peritonsillar Abcess, Sinusitis Review of Systems - Review Of Systems Constitutional: Reports: No symptoms Eyes: Reports: No symptoms Ears, Nose, Mouth, Throat: Reports: Mouth swelling, Loose teeth Respiratory: Reports: No symptoms Cardiac: Reports: No symptoms GI: Reports: No symptoms : Reports: Hematuria Musculoskeletal: Reports: No symptoms Neurological: Reports: No symptoms Endocrine: Reports: No symptoms Hematologic/Lymphatic: Reports: No symptoms All Other Systems: Reviewed and Negative Past Medical History - Past Medical History Previously Healthy: Yes Endocrine: Reports: None Cardiovascular: Reports: None Respiratory: Reports: Asthma Hematological: Reports: None Gastrointestinal: Reports: None Genitourinary: Reports: None Neuro/Psych: Reports: None Musculoskeletal: Reports: None Cancer: Reports: None - Surgical History General Surgical History: Reports: Orthopedic (Left collor bone ) - Family History Family History: Reports: None - Social History Smoking Status: Current every day smoker, Heavy tobacco smoker Hx Substance Use: No Alcohol Screening: Occasionally - Immunizations Tetanus Shot up to Date: Yes Physical Exam - Physical Exam Appearance: Ill-appearing Ill-appearing: Mild Pain Distress: Moderate Eyes: RUSSELL ENT: Ears normal Neck: Supple Respiratory: Airway patent Cardiovascular: RRR GI/: Nontender Musculoskeletal: Normal strength Skin: Warm Neurological: Sensation intact Interpretation - Radiology Interpretation Radiology Interpretation By: Radiologist Radiology Results: Positive Xray Comments: CT sinuses Maxillary pansinusitis,no fluid,tooth in sinus / inciusor right. Physician Notification - Case Discussed Physician Notified: consulted with ENT tonger at [facility]. Time of Notification: 22:30 (steroid &ABX as per original plan extr Friday.) Critical Care Note - Critical Care Note Total Time (mins): 0 Course - Course Hematology/Chemistry: 04/17/18 20:34 Vital Signs: Temp Pulse Resp BP Pulse Ox 04/17/18 20:00 99.7 F H 66 16 144/90 H 96 Departure - Departure Time of Disposition: 22:48 Disposition: HOME SELF-CARE Discharge Problem: Abscess, dental, Abscess of apex of dental root complicating chronic inflammation Instructions: Sinusitis (ED) Condition: Good Pt referred to PMD for follow-up: No (to oral surgeon Friday.June Rv to ER prn) IPMP verified?: No Additional Instructions: Continue Clindamycin 300 mg QID/additionalk sacript given/Script for Toradol. Allergies/Adverse Reactions: Allergies No Known Allergies Allergy (Verified 04/16/18 00:01) Home Medications: Ambulatory Orders Albuterol Sulfate [Albuterol Sulfate Hfa] 2 inh INH PRN PRN 08/04/13 Ibuprofen [Motrin] 600 mg PO Q6H PRN #30 tablet 08/05/15 Budesonide/Formoterol Fumarate [Symbicort 160-4.5 Mcg Inhaler] 2 puff IH BID 03/29 Buprenorphine HCl/Naloxone HCl [Suboxone 8 mg-2 mg Sl Film] 8 mg SL BID Disposition Discussed With: Patient
[2018-04-17] MEDS ORDERED: ROCEPHIN 1 GM in SODIUM CHLORIDE 50 ML IV STA (20:17)
[2018-04-17] MEDS ORDERED: NORCO 5-325 PO STA (20:24)
[2018-04-17] MEDS ORDERED: ROCEPHIN ONE (20:30)
[2018-04-17] MEDS ORDERED: TORADOL ONE (20:58)
[2018-04-17] MEDS ORDERED: TORADOL IM STA (21:17)
--- NOTE | 2018-04-17 21:37 | CT ---
Exam: CT scan of the maxillofacial area. Date: 04/17/2018. Comparison: None. HISTORY: Diagnosed with a right tooth abscess 2 days ago. Patient was given antibiotics, but sympto ms and pain are getting worse. TECHNIQUE: Helical scan of the maxillofacial area was performed without contrast. FINDINGS: There is increased attenuation in the soft tissues over the right maxilla and extending over the righ t mandible. No focal fluid collection is observed. There is mucoperiosteal thickening in the fronta l sinuses with fluid scattered throughout multiple ethmoid air cells bilaterally, with circumferentia l mucoperiosteal thickening in the right maxillary sinus as well. The sphenoid sinuses are clear. T here is an undulating nasal septum, extending to the right anteriorly but to the left more posteriorl y. There are bilateral eliane bullosa, left larger than right. There is occlusion of both ostiomeat al complexes from mucoperiosteal thickening. There is no contact of the nasal septum and turbinate m ucosa. The orbital contents appear normal. There is evidence of multiple tooth extraction and extensive car ies and many of the remaining maxillary teeth and mandibular teeth. The molar roots of multiple teet h abut the right maxillary sinus with possible penetration of the roots of what may be the remaining right maxillary molar. No periapical lucencies are observed. Impression: There is pansinusitis including extensive mucoperiosteal thickening the right maxillary sinus. There are multiple tooth extractions with extensive caries in the remaining teeth. One of th e roots of a remaining right maxillary tooth, perhaps the right first molar, may be projecting into t he right maxillary sinus, and into the extensive mucoperiosteal thickening. However there is no flui d collection observed. In addition, there is increased attenuation in the subcutaneous tissues over the right maxilla and mandible which could be due to edema or cellulitis. Undulating nasal septum with occlusion of both ostiomeatal complexes.
== END 2018-04-17 23:00 | disposition home or self-care (01) ==
LOC: ED 20:00
DX: K08.89 Other specified disorders of teeth and supporting structures (principal); K04.7 Periapical abscess without sinus; K02.7 Dental root caries; F17.210 Nicotine dependence, cigarettes, uncomplicated
CPT/HCPCS: 36415; 85025; 96365; 96375; 99283